=== PATIENT | male | born 2000 | race Caucasian/White ===

== ENCOUNTER 2021-02-23 16:56 | Emergency (ER) | payer OTHER, SELFPAY ==
--- NOTE | ~2021-02-23 | XR_ITS ---
EXAMINATION: XR ANKLE, LEFT CLINICAL INFORMATION: Fell down the stairs COMPARISON: None TECHNIQUE: AP, lateral, and mortise views of the left ankle. FINDINGS: Soft tissue swelling overlying the lateral malleolus. No fracture. Alignment is anatomic. Joint spaces are maintained. No joint effusion. XR/XR ankle LT 2V IMPRESSION: Soft tissue swelling overlying the lateral malleolus.
--- NOTE | ~2021-02-23 | XR_ITS ---
EXAMINATION: XR FOOT, LEFT CLINICAL INFORMATION: Fell down the stairs COMPARISON: None TECHNIQUE: AP, lateral, and oblique views of the left foot. FINDINGS: The bones and soft tissues are normal. No fracture. Alignment is anatomic. Joint spaces are maintained. XR/XR foot LT 2V IMPRESSION: Normal left foot.
[2021-02-23 17:17] VITALS: BP 119/62; PULSE 85; RESP 18; TEMP 36.6; O2SAT 98; BMI 21.7
--- NOTE | 2021-02-23 18:12 | ED.LOWEXIN ---
HPI - Extremity Injury (Lower) General Chief Complaint: Extremity Injury, Lower Stated Complaint: Lt ankle pain Time Seen by Provider: 02/23/21 18:12 History of Present Illness HPI Narrative: Patient complains of left ankle pain and swelling after a fall down the stairs yesterday by good luck he only twisted his ankle has no other complaints he did not hit his head neck or back, no other injury Review of Systems Review of Systems: Positive for left ankle pain after a fall Negatives are no headache no head injury no loss of consciousness no neck pain no numbness weakness or tingling no other extremity pains no lacerations Yes all other systems are reviewed and are negative PMFSH Past Medical History Source: nursing notes reviewed Social History Social History Advance Directives: No Advance Directives Information Provided: No Physical Exam Vital Signs: Vital Signs: Last Vital Signs Temp 98 F 02/23/21 17:17 Pulse 85 02/23/21 17:17 Resp 18 02/23/21 17:17 BP 119/62 02/23/21 17:17 Pulse Ox 98 02/23/21 17:17 BMI result Body Mass Index 21.7 General appearance no acute distress The head is normocephalic atraumatic Neck is supple nontender Back full range of motion Respiratory no distress Extremities the left ankle is tender and swollen mostly around the lateral malleolus there is some ecchymosis as well as swelling, there is pain with range of motion, no obvious ligamentous laxity, no tenderness over Achilles tendon, no motor or sensory deficits, skin is intact Other extremities normal with full range of motion in right lower extremity and both upper extremities Neuro no focal motor sensory deficits Course Course Course Narrative: X-rays of left foot and ankle were negative there was no other lower leg or knee tenderness and there was full range of motion in the hip and knee An air cast and crutches were supplied, patient was informed that if he is not improving next week he should follow with orthopedist for re-evaluation and he was discharged Discharge Plan Discharge Clinical Impression: Ankle sprain and strain Patient Disposition: Home, Self-Care Additional Instructions: X-ray did not show any broken bone X-ray can miss many injuries so if not improving next week especially if you are still using crutches follow with orthopedist for further evaluation Return any time if worse You can use Tylenol and or Motrin as needed for pain as well as apply ice and elevate leg Referrals: Gaurang Ashraf MD [Physician] - 1 week (Left ankle injury)
[2021-02-23 18:31] VITALS: BP 140/87; PULSE 68; RESP 16; O2SAT 99
[2021-02-23 18:32] VITALS: BP 122/81; PULSE 85; RESP 18
--- NOTE | 2021-02-23 18:34 | PC.NURSE ---
pt provided and educated on crutches and air cast applied to the left foot/ankle area
== END 2021-02-23 18:35 | disposition home or self-care (01) ==
PROVIDERS: Emergency Provider Emergency Medicine
DX: S93.402A Sprain of unspecified ligament of left ankle, initial encounter (principal); S96.912A Strain of unspecified muscle and tendon at ankle and foot level, left foot, initial encounter; W10.8XXA Fall (on) (from) other stairs and steps, initial encounter; Y93.89 Activity, other specified; Y92.9 Unspecified place or not applicable; Y99.9 Unspecified external cause status
CPT/HCPCS: 73600; 73620; 99283; 99284

== ENCOUNTER 2021-03-29 11:33 | Emergency (ER) | payer OTHER, SELFPAY ==
--- NOTE | ~2021-03-29 | XR_ITS ---
EXAMINATION: XR ANKLE, LEFT CLINICAL INFORMATION: Ankle injury COMPARISON: February 23, 2021 TECHNIQUE: AP, lateral, and mortise views of the left ankle. FINDINGS: There is no evidence of acute fracture or dislocation of the left ankle. Left ankle mortise intact. No significant soft tissue swelling is appreciated. There is question of an ankle effusion. XR/XR ankle LT min 3V IMPRESSION: No bony abnormality of the left ankle identified.
[2021-03-29 12:39] VITALS: BP 114/68; PULSE 68; RESP 18; TEMP 37; O2SAT 98; BMI 15.5
--- NOTE | 2021-03-29 15:56 | ED.LOWEXIN ---
HPI - Extremity Injury (Lower) General Chief Complaint: Extremity Injury, Lower Stated Complaint: sprained ankle follow up Time Seen by Provider: 03/29/21 14:59 Source: patient Mode of arrival: ambulatory Limitations: no limitations History of Present Illness HPI Narrative: 20-year-old male presents with ongoing left ankle pain for the last 1 month. He was seen here on 02/23/2021 after an ankle injury and had x-rays of the foot and ankle that showed soft tissue swelling over lying the lateral malleolus without any fracture or malalignment. He was given a air cast and crutches. He reports only minimal improvement over the last month and he is still using crutches. He is doing things like taking a shower on both feet and gently stepping down on the foot but not fully walking on his left foot. He was not given orthopedic follow-up and does not have an orthopedic doctor. He denies any recurrent injury. He denies any numbness, tingling. He does report weakness in the left calf and has noticed some atrophy of the muscles given his non use of the foot and ankle. MD complaint: ankle injury Onset (ago): week(s) (4) Injury: Left: ankle Type of Injury: inversion Place: home Severity: moderate Relieving factors: immobilization and rest Exacerbating factors: weight bearing and movement Context: fall Associated symptoms: able to partially bear weight Other symptoms: none Treatments prior to arrival: splint Related Data Allergies Allergy/AdvReac Type Severity Reaction Status Date / Time No Known Allergies Allergy Verified 03/29/21 12:38 Review of Systems Review of Systems: Constitutional: No Fever, No Chills Cardiovascular: No Chest Pain, No SOB Gastrointestinal: No Nausea, No Vomiting Musculoskeletal: + joint pain, No Myalgias Skin: No Skin Lesions, No rash Neuro: + Weakness, No Numbness Heme/Lymph: No Bruising PMFSH Social History Social History Patient Tobacco Use Status: Never used Tobacco Substance Use Type: Marijuana Advance Directives: No Advance Directives Information Provided: Yes Physical Exam Vital Signs: Vital Signs: Last Vital Signs Temp 98.6 F 03/29/21 12:39 Pulse 68 03/29/21 12:39 Resp 18 03/29/21 12:39 BP 114/68 03/29/21 12:39 Pulse Ox 98 03/29/21 12:39 BMI result Body Mass Index 15.5 Appearance: Alert. Oriented X3. No acute distress. HEENT: normal inspection CVS: Normal heart rate and rhythm. Pulses normal. Respiratory: No respiratory distress. Skin: Skin warm and dry. Normal skin color. Normal skin turgor. No rashes. Extremities: Normal inspection of the bilateral feet and ankles. There is minimal swelling distal to the lateral malleolus with some tenderness that is mild. No point tenderness. He has normal range of motion of the ankle with some weakness noted. He also has mild left calf atrophy. Foot and ankle are warm and well perfused. Neurovascularly intact. Neuro: Oriented X 3. No motor deficit. No sensory deficit. Course Course Course Narrative: 20 y/o male with ongoing left ankle pain x1 month after spraining it falling down stairs. XR's at the time of injury only showed soft tissue swelling. Will repeat today to assess for occult fracture. Reevaluation(s) Reevaluation #1: X-ray is negative. Suspect his pain is due to deconditioning and some atrophy. We discussed PT exercises and ROM exercises to help regain strength. He would benefit from PT. Also recommend following up with Ortho for further evaluation given his ongoing pain. He was instructed to ambulate as tolerated. Pt to follow up with ortho and start home PT exercises. Stable for d/c. Discharge Plan Discharge Clinical Impression: Ankle sprain and strain Patient Disposition: Home, Self-Care Instructions: Ankle Sprain (ED) Additional Instructions: Your x-ray today was normal. Recommend JUAN JOSE wrap for support and compression. Use ice several times per day as needed for pain. You may bear weight as tolerated. Do the physical therapy exercises we discussed in the ER to help strengthen your ankle. Take Motrin and/or Tylenol as needed for pain. Recommend following up with orthopedics for further evaluation and management. Name and number below. Referrals: Nikolas Mejía PA-C [Physician Sex Offender Treatment Professional] - 1 week (Left ankle pain x1 month x-ray negative x2)
== END 2021-03-29 16:34 | disposition home or self-care (01) ==
PROVIDERS: Emergency Provider Emergency Medicine
DX: S93.402A Sprain of unspecified ligament of left ankle, initial encounter (principal); S96.912A Strain of unspecified muscle and tendon at ankle and foot level, left foot, initial encounter; W10.9XXA Fall (on) (from) unspecified stairs and steps, initial encounter; Y93.9 Activity, unspecified; Y92.9 Unspecified place or not applicable; Y99.9 Unspecified external cause status
CPT/HCPCS: 73610; 99283

== ENCOUNTER 2021-08-24 16:02 | Emergency (ER) | payer OTHER, SELFPAY ==
[2021-08-24 16:06] VITALS: BP 127/77; PULSE 69; RESP 18; TEMP 37; O2SAT 99; BMI 19.5
[2021-08-24 17:24] LABS: Influenza A PCR NEGATIVE (Negative); Influenza B PCR NEGATIVE (Negative); Resp Syncy Virus RNA Qual PCR NEGATIVE (Negative); SARS COV2 PCR INHOUSE NEGATIVE (Negative)
--- NOTE | 2021-08-24 21:56 | ED.GENADULT ---
HPI - General Adult General Chief complaint: General Medical Stated complaint: congsestion,cough Time Seen by Provider: 08/24/21 21:56 Source: patient Mode of arrival: ambulatory Limitations: no limitations History of Present Illness HPI narrative: 22-year-old male came in for evaluation of a nasal congestion. Came in today for nasal congestion and coughing with white sputum for the past day, no recent exposure to COVID or flu, her significant other is in the ED been evaluated for same symptoms, no recent travel. No headache, no blurry vision, no CP, no SOB, no abdominal pain, no nausea, no vomiting, no diarrhea, no fever, no chills. Otherwise patient feels at her normal. Patient missed 1 day of work today and seeking a note for work today. Related Data Allergies Allergy/AdvReac Type Severity Reaction Status Date / Time No Known Allergies Allergy Verified 03/29/21 12:38 Review of Systems Review of Systems: All other systems are reviewed and are negative Constitutional: Reports as per HPI and Reports no additional constitutional complaints Eyes: Reports as per HPI and Reports no additional eye complaints Reports system reviewed and no additional complaints, except as documented Cardiovascular: Reports as per HPI and Reports no additional cardiovascular complaints Respiratory: Reports as per HPI and Reports no additional respiratory complaints Gastrointestinal: Reports as per HPI and Reports no additional gastrointestinal complaints Genitourinary: Reports no additional female genitourinary complaints Musculoskeletal: Reports no additional musculoskeletal complaints Skin/Breast: Reports system reviewed and no additional complaints, except as docu Psychiatric: Reports no additional psychiatric complaints Endocrine: Reports no additional endocrine complaints Hematologic/Lymphatic: Reports no additional hematologic/lymphatic complaints Allergic/Immunologic: Reports no additional allergic/immunologic complaints Reports system reviewed and no additional complaints, except as documented and Reports Abnormal speech present [facility] Social History Social History Patient Tobacco Use Status: Never used Tobacco Substance Use Type: Marijuana Physical Exam ED Vital Signs: Vital Signs - 24 hr 08/24/21 16:06 Temperature 98.6 F Pulse Rate 69 Respiratory Rate 18 Blood Pressure 127/77 Pulse Oximetry 99 BMI result Body Mass Index 19.5 Vital signs have been reviewed as appeared to be correct. Blood pressure normal. Heart rate normal. Respiration rate normal. Temperature normal. Oxygen saturation normal. Appearance: Alert. Oriented X3. No acute distress. Head: Normal external exam. Normocephalic. Atraumatic. No Brown signs noted. No raccoon eyes noted Eyes: PERRLA. EOMI. Conjunctiva and sclera normal. Eyelids normal. ENT: TM's Normal. Pharynx normal. Uvula midline. Moist mucous membranes. No trismus noted. No drooling noted. No muffled voice noted. Neck: Normal inspection. Neck supple. FROM. No adenopathy. Thyroid Normal. No meningeal signs. No neck mass noted. CVS: Normal heart rate and rhythm. Heart sound normal. No murmurs noted. Pulses normal throughout. Respiratory: No respiratory distress. Painless inspiration. Breath sounds normal. No wheezes/rales/rhonchi noted. Chest nontender. No accessory muscle usage noted or decreased air movement noted. Abdomen: Soft and nontender. Bowel sounds normal in all 4 quadrants. No distention noted. No organomegaly noted. No visible injury noted. Back: No CVA tenderness. Full range of motion noted. Skin: Skin warm and dry. Normal skin color. Normal skin turgor. No rashes/lesions/lacerations noted. Extremities: No lower extremity edema. Extremities exhibit normal range of motion. Extremities nontender. Neuro: Oriented X 3. Cranial nerve exam: II-XII are grossly intact No motor deficit. No sensory deficit. Reflexes normal. Course Course Course Narrative: Assessment and plan. 21-year-old male came in for evaluation for nasal congestion patient is negative for RSV/flu/COVID. Medical Decision Making Lab Data Lab results reviewed: Yes I reviewed the patient's lab results. Labs: Lab Results 08/24/21 Range/Units 16:36 Influenza Type A (PCR) NEGATIVE (Negative) Influenza Type B (PCR) NEGATIVE (Negative) RSV RNA Qual (PCR) NEGATIVE (Negative) SARS-CoV-2 RNA (RT-PCR) NEGATIVE (Negative) Discharge Plan Discharge Clinical Impression: Nasal congestion Patient Disposition: Home, Self-Care Instructions: Cold Symptoms (ED) Referrals: Physician,Unknown J [Primary Care Provider] - Stand Alone Forms: Work/School Release
== END 2021-08-24 22:32 | disposition home or self-care (01) ==
LOC: HO.ED 22:18
PROVIDERS: Emergency Provider Emergency Medicine
DX: R09.81 Nasal congestion (principal); Z20.822 Contact with and (suspected) exposure to COVID-19
CPT/HCPCS: 0241U; 99283